=== PATIENT | male | born 1960 | race Caucasian/White ===

== ENCOUNTER 2017-05-27 11:31 | Emergency (ER) | payer OTHER ==
[~2017-05-27] VITALS: Ht 177.8 cm; Wt 63.5 kg
[~2017-05-27 11:31] MED LIST: ATIVAN1 MG PO; CLINDAMYCIN HC300 MG PO; DAYPRO600 M1 PO; EES400 MG PO; GABAPENTIN400 MG PO; HYDROCODONE BIT1 T11 PO; NAPROSYN500 MG PO; NORCO 5-325 TA1 EACH PO; PAXIL20 MG PO; SKELAXIN800 MG PO; TRAMADOL HCL50 MG PO
[2017-05-27] MEDS ORDERED: CLARITIN10 MG PO (11:54)
[2017-05-27] MEDS ORDERED: PREDNISONE10 MG PO (11:54)
[2017-05-27] MEDS ORDERED: ROBITUSSIN DM 105 ML PO (11:54)
[2017-05-27] MEDS ORDERED: FLONASE ALLERG9.9 ML NAS (11:54)
[2017-05-27 12:02] LABS: BASO # 0.1 10*3/uL (0.0-0.1); BASO % 0.6 % (0.0-1.0); EOS # 0.1 10*3/uL (0.0-0.4); HEMATOCRIT 38.1 % (42.0-52.0); LYMPH # 1.2 10*3/uL (1.3-4.4); LYMPH % 11.2 % (27.0-41.0); MEAN CELL VOLUME 90.1 fl (80.0-94.0); MEAN CORPUSCULAR HGB 30.7 pg (27.0-31.0); MEAN CORPUSCULAR HGB CONC 34.1 g/dl (33.0-37.0); MONO # 0.9 10*3/uL (0.1-1.0); MONO % 7.9 % (3.0-9.0); NEUT # 8.5 10*3/uL (2.3-7.9); NEUT % 78.9 % (47.0-73.0); PLATELET COUNT AUTOMATED 212 10*3/uL (130-400); RED BLOOD COUNT 4.23 10*6/uL (4.50-5.90); RED CELL DISTRI WIDTH 13.6 % (0-14.5); WHITE BLOOD COUNT 10.8 10*3/uL (4.8-10.8)
[2017-05-27 12:19] LABS: ALBUMIN 4.3 gm/dl (3.1-4.5); ALKALINE PHOSPHATASE 105 U/L (45-117); BUN 11 mg/dl (7-24); CHLORIDE 102 mmol/L (98-107); CREATININE 0.73 mg/dL (0.70-1.30); SGOT/AST 18 IU/L (3-35); SGPT/ALT 23 U/L (12-78); SODIUM 137 mmol/L (136-145); TOTAL PROTEIN 7.2 gm/dL (6.4-8.2)
== END 2017-05-27 13:18 | disposition home or self-care (01) ==
LOC: ED 11:31
PROVIDERS: Nurse Practitioner Family
DX: J20.9 Acute bronchitis, unspecified (principal); F17.200 Nicotine dependence, unspecified, uncomplicated; G89.29 Other chronic pain; Z98.890 Other specified postprocedural states; Z79.899 Other long term (current) drug therapy; Z88.1 Allergy status to other antibiotic agents; Z88.0 Allergy status to penicillin; Z87.01 Personal history of pneumonia (recurrent)

== ENCOUNTER 2017-08-29 13:41 | Emergency (ER) | payer OTHER ==
[~2017-08-29] VITALS: Ht 177.8 cm; Wt 59.0 kg
[~2017-08-29 13:41] MED LIST changes: +CLARITIN10 MG PO; +FLONASE ALLERG9.9 ML NAS; +PREDNISONE10 MG PO; +ROBITUSSIN DM 105 ML PO
[2017-08-29] MEDS ORDERED: PAXIL20 M1 PO (13:55)
== END 2017-08-29 13:57 | disposition home or self-care (01) ==
LOC: ED 13:41
DX: F99 Mental disorder, not otherwise specified (principal); R29.818 Other symptoms and signs involving the nervous system; Z76.0 Encounter for issue of repeat prescription; Z88.0 Allergy status to penicillin; Z88.1 Allergy status to other antibiotic agents; Z79.899 Other long term (current) drug therapy

== ENCOUNTER 2017-09-05 09:55 | Emergency (ER) | payer OTHER ==
[~2017-09-05] VITALS: Ht 177.8 cm; Wt 61.2 kg
[~2017-09-05 09:55] MED LIST changes: +PAXIL20 M1 PO
== END 2017-09-05 11:04 | disposition home or self-care (01) ==
LOC: ED 09:55
DX: Z00.00 Encounter for general adult medical examination without abnormal findings (principal); G89.29 Other chronic pain; Z98.890 Other specified postprocedural states; Z79.899 Other long term (current) drug therapy; Z88.0 Allergy status to penicillin; Z88.1 Allergy status to other antibiotic agents

== ENCOUNTER 2018-03-31 18:34 | Emergency (ER) | payer OTHER ==
[~2018-03-31] VITALS: Ht 175.2 cm; Wt 61.2 kg
[2018-03-31] MEDS ORDERED: NAPROSYN500 MG PO (19:02)
[2018-03-31] MEDS ORDERED: CLEOCIN HCL150 MG PO (19:02)
== END 2018-03-31 19:06 | disposition home or self-care (01) ==
LOC: ED 18:34
DX: K04.7 Periapical abscess without sinus (principal); K02.9 Dental caries, unspecified; Z88.1 Allergy status to other antibiotic agents; Z88.0 Allergy status to penicillin; Z79.2 Long term (current) use of antibiotics; Z79.899 Other long term (current) drug therapy